=== PATIENT | male | born 1945 | race Two or more races ===

== ENCOUNTER 2022-04-23 10:58 | Emergency (ER) | payer OTHER ==
[~2022-04-23] VITALS: Ht 175.3 cm; Wt 81.0 kg
[2022-04-23] MEDS ORDERED: MECLIZINE HCL 25 MG TAB PO ONE (12:00)
[2022-04-23] MEDS ORDERED: FUROSEMIDE 20 MG/2 ML VIAL IV ONE (12:00)
[2022-04-23] MEDS ORDERED: SODIUM CHLORIDE 0.9% 1,000 ML IV ONE (12:00)
[2022-04-23] MEDS ORDERED: SODIUM CHLORIDE 0.9% 500 ML IVB ONE (12:00)
[2022-04-23] MEDS ORDERED: LORazepam 2MG/ML-1ML VIAL IV ONE (12:00)
[2022-04-23 12:15] LABS: Urine Bacteria NONE SEEN /hpf (None Seen); Urine Blood Negative /uL (Negative); Urine Mucus FEW (None Seen); Urine Specific Gravity 1.014 (1.001-1.035); Urine WBC <1 /hpf (0 - 3)
[2022-04-23 12:22] LABS: Basophils # (auto) 0.1 10 ^3/uL (0-0.2); Basophils % (auto) 0.6 % (0.0-2.0); Eosinophils # (auto) 0.1 10 ^3/uL (0-0.8); Eosinophils % (auto) 0.7 % (0.0-7.0); Hematocrit 46.6 % (41.0-53.0); Hemoglobin 15.7 g/dL (13.5-17.5); Lymphocytes # (auto) 1.5 10 ^3/uL (0.4-5.4); Lymphocytes % (auto) 18.5 % (10.0-50.0); Mean Corpuscular Hemoglobin 30.5 pg (28.0-32.0); Mean Corpuscular Hgb Conc. 33.7 g/dL (32.0-36.0); Mean Corpuscular Volume 90.7 fL (80.0-100.0); Monocytes # (auto) 0.5 10 ^3/uL (0-1.3); Monocytes % (auto) 6.3 % (0.0-12.0); Neutrophils # (auto) 6.2 10 ^3/uL (1.6-8.6); Neutrophils % (auto) 73.9 % (37.0-80.0); Red Blood Cells 5.14 10^6/uL (4.5-5.90); White Blood Cell 8.3 10^3/uL (4.4-10.8)
[2022-04-23 12:31] LABS: Albumin 3.4 g/dL (3.4-5.0); BUN/Creatinine Ratio 20.5; Calcium 8.3 mg/dL (8.5-10.1); Potassium 4.3 mmol/L (3.5-5.1)
[2022-04-23 12:34] LABS: Bilirubin, Total 1.3 mg/dL (0.2-1.0); Total Protein 6.6 g/dL (6.4-8.2)
[2022-04-23] MEDS ORDERED: MECL25CH38 PO (15:32)
[2022-04-23] MEDS ORDERED: FLUT1SPR5 (15:32)
[2022-04-23] MEDS ORDERED: BACDST PO (15:32)
[2022-04-23 16:05] VITALS: BP 127/74
== END 2022-04-23 16:29 | disposition home or self-care (01) ==
LOC: ER 10:58 → EDBD 10:58 → ER 16:29
DX: H81.11 Benign paroxysmal vertigo, right ear (principal); J01.90 Acute sinusitis, unspecified; E11.65 Type 2 diabetes mellitus with hyperglycemia; I48.91 Unspecified atrial fibrillation; I10 Essential (primary) hypertension; Z90.49 Acquired absence of other specified parts of digestive tract
CPT/HCPCS: 36415; 70450; 71046; 80053; 81001; 83735; 84484; 85025; 93005; 96361; 96374; 96375; 99284; J1940; J2060; J7030; J8597

== ENCOUNTER 2022-05-01 22:19 | Inpatient (IN) | payer OTHER ==
[~2022-05-01] VITALS: Ht 175.3 cm; Wt 78.1 kg
[~2022-05-01 22:19] MED LIST: BACDST PO; FLUT1SPR5; MECL25CH38 PO
[2022-05-01 23:47] LABS: Basophils # (auto) 0 10 ^3/uL (0-0.2); Basophils % (auto) 0.6 % (0.0-2.0); Eosinophils # (auto) 0.2 10 ^3/uL (0-0.8); Eosinophils % (auto) 2.7 % (0.0-7.0); Hematocrit 44.7 % (41.0-53.0); Hemoglobin 15.3 g/dL (13.5-17.5); Lymphocytes # (auto) 2.5 10 ^3/uL (0.4-5.4); Lymphocytes % (auto) 36.3 % (10.0-50.0); Mean Corpuscular Hemoglobin 31.4 pg (28.0-32.0); Mean Corpuscular Hgb Conc. 34.3 g/dL (32.0-36.0); Mean Corpuscular Volume 91.8 fL (80.0-100.0); Monocytes # (auto) 0.6 10 ^3/uL (0-1.3); Monocytes % (auto) 8.3 % (0.0-12.0); Neutrophils # (auto) 3.6 10 ^3/uL (1.6-8.6); Neutrophils % (auto) 52.1 % (37.0-80.0); Nucleated Red Blood Cells % 0.1 %; Red Blood Cells 4.87 10^6/uL (4.5-5.90); Red Cell Distribution Width 13.3 % (11.8-14.3); White Blood Cell 6.9 10^3/uL (4.4-10.8)
[2022-05-02 00:03] LABS: Albumin 3.4 g/dL (3.4-5.0); BUN/Creatinine Ratio 24.7; Calcium 8.3 mg/dL (8.5-10.1); Magnesium 1.8 mg/dL (1.6-2.6); Potassium 3.7 mmol/L (3.5-5.1)
[2022-05-02 00:05] LABS: Bilirubin, Total 0.9 mg/dL (0.2-1.0); Total Protein 6.6 g/dL (6.4-8.2)
[2022-05-02 01:15] LABS: Urine Bacteria NONE SEEN /hpf (None Seen); Urine Blood Negative /uL (Negative); Urine Mucus FEW (None Seen); Urine Specific Gravity 1.023 (1.001-1.035); Urine WBC 1 /hpf (0 - 3)
[2022-05-02] MEDS ORDERED: ASPirin 325 MG TAB PO ONE (02:00)
[2022-05-02] MEDS ORDERED: LABETALOL HCL 5 MG/ML 4ML SYRINGE IV PRN (02:30)
[2022-05-02] MEDS ORDERED: ATORVASTATIN 20 MG TAB PO ONE (02:30)
[2022-05-02] MEDS ORDERED: ONDANSETRON HCL 4 MG/2 ML VIAL IV PRN (02:30)
[2022-05-02] MEDS ORDERED: NITROGLYCERIN 0.4 MG SL TAB SL PRN (02:30)
[2022-05-02] MEDS ORDERED: ACETAMINOPHEN 325 MG TAB PO PRN (02:30)
[2022-05-02] MEDS ORDERED: MORPHINE SULFATE INJ 2 MG/ml SYRG IV PRN (02:30)
[2022-05-02] MEDS ORDERED: DEXTROSE (50%) 50ML SYRG IV PRN (02:30)
[2022-05-02 02:53] LABS: INR 1.34 (0.9-1.15); Partial Thromboplastin Time 34.9 sec (24.6-33.4)
[2022-05-02] MEDS: ACCU-CHEK COMFORT CURVE STRIP VI SCH ×4 (06:42→22:41)
[2022-05-02] MEDS: InsuLIN REG 1unit/0.01ml Soln (100units/ml) SC SCH ×4 (06:46→22:41)
[2022-05-02 09:12] VITALS: BP 134/69
[2022-05-02 09:57] LABS: Amphetamine Screen, Urine NEGATIVE (NEGATIVE); Barbiturate Scree,Urine NEGATIVE (NEGATIVE); Benzodiazephine Screen, Urine NEGATIVE (NEGATIVE); Cannabinoid Screen, Urine NEGATIVE (NEGATIVE); Cocaine Screen, Urine NEGATIVE (NEGATIVE); Opiate Scree,Urine NEGATIVE (NEGATIVE); Phencyclidine Screen, Urine NEGATIVE (NEGATIVE)
[2022-05-02] MEDS ORDERED: ASPirin 81 mg TAB PO SCH (10:00)
[2022-05-02] MEDS ORDERED: PANTOPRAZOLE 40 MG TAB PO SCH (10:00)
[2022-05-02 10:10] LABS: Alcohol, Urine < 3.0 mg/dL (0-10)
[2022-05-02] MEDS: ASPirin 81 mg TAB PO SCH (10:16)
[2022-05-02] MEDS: CARVEDILOL 3.125 MG TAB PO SCH ×2 (10:17→22:39)
[2022-05-02] MEDS: ENOXAPARIN SOD 40 MG/0.4 ML SYRINGE SC SCH (10:17)
[2022-05-02 13:11] LABS: Cholesterol 149 mg/dL (< 200); HDL Cholesterol 43 mg/dL (40-59); LDL Cholesterol 92 mg/dL (< 100); Triglycerides 137 mg/dL (< 150)
[2022-05-02 22:00] VITALS: BP 125/80
[2022-05-02] MEDS: ATORVASTATIN 20 MG TAB PO SCH (22:39)
[2022-05-03 04:40] LABS: Basophils # (auto) 0 10 ^3/uL (0-0.2); Basophils % (auto) 0.6 % (0.0-2.0); Eosinophils # (auto) 0.2 10 ^3/uL (0-0.8); Eosinophils % (auto) 2.7 % (0.0-7.0); Hematocrit 45.1 % (41.0-53.0); Hemoglobin 15.8 g/dL (13.5-17.5); Lymphocytes % (auto) 26.6 % (10.0-50.0); Mean Corpuscular Hemoglobin 31.4 pg (28.0-32.0); Mean Corpuscular Hgb Conc. 34.9 g/dL (32.0-36.0); Mean Corpuscular Volume 89.7 fL (80.0-100.0); Monocytes # (auto) 0.7 10 ^3/uL (0-1.3); Monocytes % (auto) 9.4 % (0.0-12.0); Neutrophils # (auto) 4.6 10 ^3/uL (1.6-8.6); Neutrophils % (auto) 60.7 % (37.0-80.0); Nucleated Red Blood Cells % 0.1 %; Red Blood Cells 5.03 10^6/uL (4.5-5.90); White Blood Cell 7.5 10^3/uL (4.4-10.8)
[2022-05-03 05:00] VITALS: BP 116/83
[2022-05-03 05:03] LABS: Albumin 3.2 g/dL (3.4-5.0); Calcium 8.2 mg/dL (8.5-10.1); Potassium 3.7 mmol/L (3.5-5.1)
[2022-05-03 05:05] LABS: Bilirubin, Total 1.5 mg/dL (0.2-1.0); Total Protein 6.2 g/dL (6.4-8.2)
[2022-05-03] MEDS: InsuLIN REG 1unit/0.01ml Soln (100units/ml) SC SCH ×4 (06:24→21:50)
[2022-05-03] MEDS: ACCU-CHEK COMFORT CURVE STRIP VI SCH ×4 (06:24→21:47)
[2022-05-03 09:00] VITALS: BP 146/87
[2022-05-03] MEDS: ENOXAPARIN SOD 40 MG/0.4 ML SYRINGE SC SCH (09:32)
[2022-05-03] MEDS: ASPirin 81 mg TAB PO SCH (09:33)
[2022-05-03] MEDS: CARVEDILOL 3.125 MG TAB PO SCH ×2 (09:33→21:47)
[2022-05-03 12:49] VITALS: BP 125/86
[2022-05-03 16:43] VITALS: BP 144/97
[2022-05-03] MEDS ORDERED: TAM04C PO (18:11)
[2022-05-03] MEDS ORDERED: RIVA20TA PO (18:11)
[2022-05-03] MEDS: ATORVASTATIN 20 MG TAB PO SCH (21:46)
[2022-05-03 22:00] VITALS: BP 142/99
[2022-05-03] MEDS: MECLIZINE HCL 25 MG TAB PO SCH (23:18)
[2022-05-04] VITALS (7 sets, daily range): BP systolic 107–167; BP diastolic 74–116
[2022-05-04] MEDS: MECLIZINE HCL 25 MG TAB PO SCH ×2 (06:31→14:00)
[2022-05-04] MEDS: ACCU-CHEK COMFORT CURVE STRIP VI SCH ×4 (06:39→21:32)
[2022-05-04] MEDS: InsuLIN REG 1unit/0.01ml Soln (100units/ml) SC SCH ×4 (06:40→21:34)
[2022-05-04] MEDS: CARVEDILOL 3.125 MG TAB PO SCH ×2 (10:26→21:23)
[2022-05-04] MEDS ORDERED: CAR3125T PO (16:36)
[2022-05-04] MEDS ORDERED: TAMSULOSIN HYDROCHLORIDE 0.4 MG CAP PO SCH (18:00)
[2022-05-04] MEDS ORDERED: RIVAROXABAN 20 MG TAB PO SCH (18:00)
[2022-05-04] MEDS ORDERED: SACUBITRIL-VALSARTAN 24mg/26mg TAB PO ONE (18:45)
[2022-05-04] MEDS: ATORVASTATIN 20 MG TAB PO SCH (21:22)
[2022-05-05] MEDS ORDERED: SACU1TAB PO (15:05)
== END 2022-05-04 21:35 | disposition home or self-care (01) | DRG 149 ==
LOC: EDBD 22:19 → ER 22:24 → TELE 05-02 02:31 → TELE-CENTR 05-02 16:26
PROVIDERS: ADMIT Nurse Practitioner; ATTEND Internal Medicine
PROC: 5A09357 Assistance with Respiratory Ventilation, Less than 24 Consecutive Hours, Continuous Positive Airway Pressure (ICD-10-PCS; principal; 2022-05-02)
PROC: 5A09357 Assistance with Respiratory Ventilation, Less than 24 Consecutive Hours, Continuous Positive Airway Pressure (ICD-10-PCS; 2022-05-04)
DX: H81.10 Benign paroxysmal vertigo, unspecified ear (principal); I48.20 Chronic atrial fibrillation, unspecified; E11.65 Type 2 diabetes mellitus with hyperglycemia; E86.0 Dehydration; F17.200 Nicotine dependence, unspecified, uncomplicated; Z20.822 Contact with and (suspected) exposure to COVID-19; E11.9 Type 2 diabetes mellitus without complications; E78.5 Hyperlipidemia, unspecified; G47.30 Sleep apnea, unspecified; I11.0 Hypertensive heart disease with heart failure; I50.9 Heart failure, unspecified; G45.4 Transient global amnesia; Z79.82 Long term (current) use of aspirin; Z90.49 Acquired absence of other specified parts of digestive tract; Z79.01 Long term (current) use of anticoagulants; Z86.73 Personal history of transient ischemic attack (TIA), and cerebral infarction without residual deficits
CPT/HCPCS: 36415; 70450; 70551; 71045; 80053; 80061; 80307; 81001; 82962; 83036; 83605; 83735; 83880; 84484; 85025; 85610; 85730; 93306; 93886; 94660; 95819; G0378; J1815; J3490

== ENCOUNTER 2022-09-05 08:56 | Inpatient (IN) | payer OTHER ==
[~2022-09-05] VITALS: Ht 175.3 cm; Wt 79.9 kg
[2022-09-05] VITALS (12 sets, daily range): BP systolic 118–158; BP diastolic 73–104
[~2022-09-05 08:56] MED LIST changes: +ATOR10TA52 PO; -BACDST PO; +CARV6.2551 PO; -FLUT1SPR5; +GLIM-5 PO; +LISI-275 PO; -MECL25CH38 PO; +METF-370 PO; +RIVA20TA PO; +TAM04C PO
[2022-09-05] MEDS ORDERED: IOHEXOL 350 MG/ML 100ML IJ ONE (10:25)
[2022-09-05] MEDS ORDERED: ANGIOMAX 250 MG VIAL IV ONE (10:26)
[2022-09-05] MEDS ORDERED: SODIUM CHL 0.9% 50 ML ONE (10:27)
[2022-09-05] MEDS ORDERED: fentaNYL CITRATE 100 MCG/2 ML VL ONE (10:27)
[2022-09-05] MEDS ORDERED: MIDAZOLAM HCL 2MG/2ML 2ml VIAL (1mg/ml) ONE (10:27)
[2022-09-05] MEDS ORDERED: IODIXANOL 320MG/ML 100ML BTL IV ONE (10:30)
[2022-09-05] MEDS ORDERED: HEPARIN SODIUM (PORCINE) 5000 UNITS/ML 1ML VIAL ONE (10:32)
[2022-09-05] MEDS ORDERED: VERAPAMIL 2.5MG/ML INJ 2ML VIAL IV ONE (10:32)
[2022-09-05] MEDS ORDERED: ASPirin 81 mg TAB ONE (11:04)
[2022-09-05] MEDS ORDERED: TICAGRELOR 90 MG TAB ONE (11:05)
[2022-09-05] MEDS ORDERED: MORPHINE SULFATE INJ 2 MG/ml SYRG IV PRN (11:15)
[2022-09-05] MEDS ORDERED: NITROGLYCERIN 0.4 MG SL TAB SL PRN (11:15)
[2022-09-05] MEDS ORDERED: hydrALAZINE HCL 20 MG/ML VL IV PRN (17:15)
[2022-09-05] MEDS ORDERED: CLOPIDOGREL 300 MG TAB PO ONE ×2 (18:00→22:15)
[2022-09-06 05:00] VITALS: BP 141/78
[2022-09-06 08:00] VITALS: BP_SYST 122; BP_DIAS 90; BP_DIAS 99
[2022-09-06] MEDS ORDERED: CLOPIDOGREL BISULFATE 75 MG TAB PO SCH ×3 (10:00→22:00)
[2022-09-06] MEDS ORDERED: ASPirin 81 mg TAB PO ONE (10:15)
[2022-09-06] MEDS ORDERED: CLOP75TA70 PO (10:23)
[2022-09-06 12:27] VITALS: BP 122/99
== END 2022-09-06 14:37 | disposition home or self-care (01) | DRG 247 ==
LOC: CATH 08:56 → TELE 11:13 → TELE-CENTR 15:48
PROVIDERS: ADMIT Internal Medicine; ATTEND Internal Medicine
PROC: 027034Z Dilation of Coronary Artery, One Artery with Drug-eluting Intraluminal Device, Percutaneous Approach (ICD-10-PCS; principal; 2022-09-05)
PROC: B211YZZ Fluoroscopy of Multiple Coronary Arteries using Other Contrast (ICD-10-PCS; 2022-09-05)
PROC: 4A023N7 Measurement of Cardiac Sampling and Pressure, Left Heart, Percutaneous Approach (ICD-10-PCS; 2022-09-05)
DX: I48.91 Unspecified atrial fibrillation (principal); I50.9 Heart failure, unspecified; Z20.822 Contact with and (suspected) exposure to COVID-19; I42.8 Other cardiomyopathies; E78.5 Hyperlipidemia, unspecified; E11.9 Type 2 diabetes mellitus without complications
CPT/HCPCS: 92928; 93458; 99152; 99153; C1874; G0378; J2250; Q9967